=== PATIENT | male | born 1975 | race Caucasian/White ===

== ENCOUNTER 2018-06-07 14:56 | Emergency (ER) | payer MEDICAID ==
[~2018-06-07] VITALS: Ht 177.8 cm; Wt 87.0 kg
[2018-06-07 15:23] VITALS: BP 196/127
== END 2018-06-07 17:03 | disposition left against medical advice (07) ==
LOC: ER 16:53
DX: Z53.21 Procedure and treatment not carried out due to patient leaving prior to being seen by health care provider (principal)